=== PATIENT | male | born 1935 | race Caucasian/White ===

== ENCOUNTER 2021-02-19 09:19 | Emergency (ER) | payer MEDICARE ==
[2021-02-19 09:28] VITALS: BP 116/68
--- NOTE | 2021-02-19 11:01 | XRay Report ---
CHEST 2 VIEWS INDICATION / CLINICAL INFORMATION: weakness. COMPARISON: None available. FINDINGS: SUPPORT DEVICES: None. HEART / MEDIASTINUM: No significant abnormality. LUNGS / PLEURA: No significant pulmonary or pleural abnormality. No pneumothorax. ADDITIONAL FINDINGS: No significant additional findings. IMPRESSION: 1. No acute findings. Signer Name: Darío Eisenberg MD Signed: 02/19/2021 10:57 AM Workstation Name: [id number]
[2021-02-19] MEDS ORDERED: oxyCODONE /ACETAMINOPHEN 5-325MG TAB PO ONE (11:37)
--- NOTE | 2021-02-19 11:39 | Emergency Department Report ---
ED General Adult HPI - General Chief complaint: Weakness Stated complaint: Nontraumatic left great toe pain Time Seen by Provider: 02/19/21 11:09 Source: patient, family, RN notes reviewed Mode of arrival: Ambulatory Limitations: Language Barrier - History of Present Illness Initial comments: The patient is an 85-year-old gentleman. He has a history of diabetes, high cholesterol, and possible BPH. He is accompanied by his son, Mr. Go Fox; [phone]. The patient provides permission and consent for his son to provide the history of present illness, and translate. The patient presents to the ER today with a complaint of nontraumatic left great toe pain, and redness without swelling. He recently went to an outpatient urgent care center, and was presumptively diagnosed with gout, without arthrocentesis, history of gout, and for unclear reasons, started on prednisone, indomethacin, and colchicine. He currently denies headache, neck pain, chest pain, abdominal pain, shortness of breath. To me, he denies walking and resting claudication. He does endorse nontraumatic wounds noted on the left lateral/inferior aspect of the great toe, and of the right heel. Both the patient and his son are not quite sure how long these lesions have been there for. To the best of their knowledge, this patient does not have a history of renal insufficiency. To me, he makes no complaints of loss of appetite. He is able to ambulate and weight-bear, but is painful on his left foot. He lives at home with family -: Gradual, days(s) Location: left, lower extremity Consistency: constant Improves with: rest Worsens with: movement - Related Data Previous Rx's Medication Instructions Recorded Last Taken Type Acetaminophen [Non-Aspirin Extra 500 mg PO Q6HR PRN #30 tablet 02/19/21 Unknown Rx Strength] Aspirin EC [Ecotrin] 325 mg PO QDAY #30 tablet. 02/19/21 Unknown Rx Allergies Allergy/AdvReac Type Severity Reaction Status Date / Time Penicillins AdvReac Unknown Verified 02/19/21 09:28 ED Review of Systems ROS: Stated complaint: Pain in foot, trouble sleeping, no appetite Other details as noted in HPI Constitutional: denies: fever, malaise, weakness Eyes: denies: eye discharge ENT: denies: epistaxis Respiratory: denies: cough Cardiovascular: denies: chest pain Gastrointestinal: denies: abdominal pain Genitourinary: denies: dysuria Musculoskeletal: arthralgia, myalgia Skin: lesions Neurological: denies: weakness, numbness ED Past Medical Hx - Medications Home Medications: Home Medications Medication Instructions Recorded Confirmed Last Taken Type Acetaminophen [Non-Aspirin Extra 500 mg PO Q6HR PRN #30 tablet 02/19/21 Unknown Rx Strength] Aspirin EC [Ecotrin] 325 mg PO QDAY #30 tablet. 02/19/21 Unknown Rx ED Physical Exam - General Limitations: Language Barrier General appearance: alert, in no apparent distress - Head Head exam: Present: atraumatic, normocephalic - Eye Eye exam: Present: normal appearance, EOMI. Absent: nystagmus - ENT ENT exam: Present: normal exam, normal orophraynx, mucous membranes moist, normal external ear exam - Neck Neck exam: Present: normal inspection, full ROM. Absent: tenderness, meningismus - Respiratory Respiratory exam: Present: normal lung sounds bilaterally. Absent: respiratory distress, wheezes, rales, rhonchi, stridor, decreased breath sounds - Cardiovascular Cardiovascular Exam: Present: regular rate, normal rhythm, normal heart sounds. Absent: bradycardia, tachycardia, irregular rhythm, systolic murmur, diastolic murmur, rubs, gallop - GI/Abdominal GI/Abdominal exam: Present: soft. Absent: distended, tenderness, guarding, rebound, rigid, pulsatile mass - Rectal Rectal exam: Present: deferred - Extremities Exam Extremities exam: Present: full ROM, other (2+ pulses noted in the bilateral radial and femoral distribution. There is delayed capillary refill in the bilateral feet, and the bilateral feet are cool to touch. Pulses not appreciated on the bilateral lower extremities. ). Absent: normal inspection (On the right heel, there is a 2 to 3 mm wound, with what appears to be micronecrosis. On the plantar medial aspect of the left great toe, there are 2 subcentimeter punctate areas of necrosis/wound. There is no pus or streaking. Left great toe is minimally red, but nontender. ), tenderness (There is no pain with passive range of motion of the great toe), normal capillary refill (Bilateral lower extremities), pedal edema, calf tenderness - Back Exam Back exam: Present: normal inspection. Absent: tenderness, CVA tenderness (R), CVA tenderness (L), paraspinal tenderness, vertebral tenderness - Neurological Exam Neurological exam: Present: alert, normal gait (The patient walks with a slight limp), other (No facial droop. Tongue midline. Extraocular movements intact bilaterally. Facial sensation intact to light touch in V1, V2, V3 distribution bilaterally. 5 and a 5 strength in 4 extremities. Sensation intact to light touch in 4 extremities.). Absent: motor sensory deficit - Psychiatric Psychiatric exam: Present: flat affect - Skin Skin exam: Present: warm, dry ED Course Vital Signs 02/19/21 02/19/21 09:24 11:51 Temperature 96.4 F L Pulse Rate 87 Respiratory 12 15 Rate Blood Pressure 116/68 [Left] O2 Sat by Pulse 100 Oximetry ED Medical Decision Making - Lab Data Result diagrams: 02/19/21 11:52 02/19/21 11:52 Vital Signs 02/19/21 02/19/21 09:24 11:51 Temperature 96.4 F L Pulse Rate 87 Respiratory 12 15 Rate Blood Pressure 116/68 [Left] O2 Sat by Pulse 100 Oximetry Lab Results 02/19/21 02/19/21 02/19/21 Range/Units 11:52 11:52 11:52 WBC 7.0 (4.5-11.0) K/mm3 RBC 5.80 H (3.65-5.03) M/mm3 Hgb 12.6 (11.8-15.2) gm/dl Hct 39.0 (35.5-45.6) % MCV 67 L (84-94) fl MCH 22 L (28-32) pg MCHC 32 (32-34) % RDW 16.7 H (13.2-15.2) % Plt Count 255 (140-440) K/mm3 Stanton % (Auto) 9.7 H (0.0-7.3) % Eos % (Auto) Dietary Assistant Eos # (Auto) 1.4 H (0.0-0.4) K/mm3 Seg Neutrophils % 58.4 (40.0-70.0) % Seg Neutrophils # 4.1 (1.8-7.7) K/mm3 PT 12.7 (12.2-14.9) Sec. INR 0.86 L (0.87-1.13) Sodium 133 L (137-145) mmol/L Potassium 4.5 (3.6-5.0) mmol/L Chloride 98.8 (98-107) mmol/L Carbon Dioxide 23 (22-30) mmol/L Anion Gap 16 mmol/L BUN 41 H (9-20) mg/dL Creatinine 2.6 H (0.8-1.3) mg/dL Estimated GFR 24 ml/min BUN/Creatinine Ratio 16 % Glucose 172 H (75-100) mg/dL Calcium 8.5 (8.4-10.2) mg/dL Magnesium 2.10 (1.7-2.3) mg/dL Total Bilirubin 0.20 (0.1-1.2) mg/dL AST 30 (5-40) units/L ALT 63 H (7-56) units/L Alkaline Phosphatase 103 (35-129) units/L Total Creatine Kinase 109 (55-170) units/L Total Protein 6.9 (6.3-8.2) g/dL Albumin 3.8 L (3.9-5) g/dL Albumin/Globulin Ratio 1.2 % - Radiology Data Radiology results: pending, report reviewed, image reviewed XR foot 3+V LT INDICATION / CLINICAL INFORMATION: left foot pain, great toe wound. COMPARISON: None available. FINDINGS: BONES/JOINT(S): No acute fracture or subluxation. There is mild DJD in the first MTP joint. There are no focal areas of bone destruction to suggest osteomyelitis. SOFT TISSUES: Soft tissue swelling in the great toe without formed body or soft tissue gas. ADDITIONAL FINDINGS: None. Signer Name: Darío Eisenberg MD Signed: 02/19/2021 11:31 AM Workstation Name: [id number] CHEST 2 VIEWS INDICATION / CLINICAL INFORMATION: weakness. COMPARISON: None available. FINDINGS: SUPPORT DEVICES: None. HEART / MEDIASTINUM: No significant abnormality. LUNGS / PLEURA: No significant pulmonary or pleural abnormality. No pneumothorax. ADDITIONAL FINDINGS: No significant additional findings. IMPRESSION: 1. No acute findings. Signer Name: Darío Eisenberg MD Signed: 02/19/2021 9:57 AM Workstation Name: [id number] DUPLEX DOPPLER LOWER EXTREMITY ARTERIAL, BILATERAL INDICATION / CLINICAL INFORMATION: lle pain, cool extremities, no dp pulses. TECHNIQUE: Arterial duplex examination of both lower extremities performed using B-mode, color flow and spectral Doppler assessment. FINDINGS: RIGHT: Common Femoral Artery: PSV 87 cm/sec. Triphasic waveform. Proximal SFA: PSV 84 cm/sec. Biphasic waveform. Mid SFA: PSV 70 cm/sec. Biphasic waveform. Distal SFA: PSV 50 cm/sec. Biphasic waveform. Popliteal artery: PSV 70 cm/sec. Biphasic waveform. Posterior tibial artery: PSV 16 cm/sec. Monophasic waveform. Dorsalis Pedis Artery: PSV 5 cm/sec. Monophasic waveform. LEFT: Common Femoral Artery: PSV 65 cm/sec. Biphasic waveform. Proximal SFA: PSV 86 cm/sec. Biphasic waveform. Mid SFA: PSV 62 cm/sec. Biphasic waveform. Distal SFA: PSV 43 cm/sec. Biphasic waveform. Popliteal artery: PSV 41 cm/sec. Biphasic waveform. Posterior tibial artery: PSV 21 cm/sec. Monophasic waveform. Dorsalis Pedis Artery: PSV 7 cm/sec. Monophasic waveform. IMPRESSION: 1. Findings suggesting high-grade stenosis in the bilateral calf/ankle arteries. Ankle-Brachial Index (JOSEFINA): - Calcified arteries > 1.4 - Normal = 0.9-1.4 - Mild PAD = 0.7-0.89 - Moderate PAD = 0.51-0.69 - Severe PAD < 0.5 Doppler Waveform: - Triphasic is normal. - Biphasic is abnormal if clear transition from triphasic signal along vascular tree. - Monophasic is abnormal. Signer Name: Darío Eisenberg MD Signed: 02/19/2021 12:40 PM Workstation Name: [id number] - Medical Decision Making Differential diagnosis, including but not limited to: Peripheral artery disease, resting claudication, left great toe wound, right heel wound Assessment and plan: 85-year-old gentleman, who was afebrile, with reassuring vital signs, temperature of 96.4 likely secondary to environmental exposure, presenting to the ER with a primary complaint of left great toe pain, left foot pain, without evidence of superinfection, likely secondary to undiagnosed an unknown peripheral artery disease. Femoral pulses appreciated, and lower extremity duplex study suggests lower extremity PAD. Laboratory studies unremarkable with exception of renal insufficiency. Extensive discussion had with patient and his 2 sons, Mr. Stiles, and Mr. Capone. We discussed the risks, benefits and alternatives of admission versus outpatient follow-up. The patient has endorsed in no uncertain terms that he would like to be discharged as an outpatient. He exhibits decision-making capacity, is free from distracting injury, and is of sound mind. This appears to have been going on for some time, and he is not acutely or emergently decompensated at this point in time. Patient and his sons endorse that they are reliable to follow-up as an outpatient for renal insufficiency of unknown duration and chronicity, and peripheral artery disease. Have strongly encouraged patient and sons to follow-up closely with outpatient vascular surgery, and outpatient nephrology. Recommended that they discontinue prednisone, colchicine, and indomethacin. Discontinue NSAIDs. Return precautions reviewed. All questions answered. Family and patient endorsed understanding Critical care attestation.: If time is entered above; I have spent that time in minutes in the direct care of this critically ill patient, excluding procedure time. ED Disposition Clinical Impression: PAD (peripheral artery disease), Left foot pain, Renal insufficiency, Wound of foot Disposition: 01 HOME / SELF CARE / HOMELESS Is pt being admited?: No Does the pt Need Aspirin: No Condition: Good Instructions: Peripheral Vascular Disease, Wound Care, Adult Additional Instructions: Weightbearing as tolerated. Patient is found to have peripheral artery disease in the bilateral lower extremities. This should be followed up as soon as possible with an outpatient vascular surgeon, such as Dr. Guzman. Patient may take the prescribed Tylenol as needed for physical pain. Patient should also take the aspirin as directed. The patient should discontinue Motrin, ibuprofen, Naprosyn, Aleve, and he should also not take colchicine, indomethacin, or prednisone/steroids. If the patient takes a medication that is an SONIA inhibitor, he should discontinue this medication. The patient should also follow-up with a wastewater analyst lab analyst, such as Dr. Lu, within the next week. Please return to the emergency room right away with new pain, worsened pain, migration of pain, projectile vomiting, change in mental status, confusion, inability to tolerate liquid feeds, new, worsened or different symptoms not present on the initial emergency room evaluation. Not following up closely with an outpatient vascular surgeon will result in worsening wounds in the bilateral lower feet, which will place patient at risk for infection, which ultimately may require amputation, and because disability, or even in extreme situations. Therefore, it is very important to closely follow-up with outpatient specialists as recommended. Referrals: JORGE GUZMAN MD [Staff Physician] - 3-5 Days TIO LU DO [Staff Physician] - 3-5 Days
[2021-02-19 12:06] LABS: Platelet Count 255 K/mm3 (140-440)
[2021-02-19 12:12] LABS: Eosinophils # (Auto) 1.4 K/mm3 (0.0-0.4); Hemoglobin 12.6 gm/dl (11.8-15.2); Mean Corpuscular HGB Conc 32 % (32-34); Monocytes % (Auto) 9.7 % (0.0-7.3); Red Cell Distribution Width 16.7 % (13.2-15.2)
[2021-02-19 12:13] LABS: Mean Corpuscular Volume 67 fl (84-94)
[2021-02-19 12:18] LABS: INR 0.86 (0.87-1.13)
[2021-02-19 12:29] LABS: Albumin 3.8 g/dL (3.9-5); Calcium 8.5 mg/dL (8.4-10.2)
--- NOTE | 2021-02-19 12:35 | XRay Report ---
XR foot 3+V LT INDICATION / CLINICAL INFORMATION: left foot pain, great toe wound. COMPARISON: None available. FINDINGS: BONES/JOINT(S): No acute fracture or subluxation. There is mild DJD in the first MTP joint. There are no focal areas of bone destruction to suggest osteomyelitis. SOFT TISSUES: Soft tissue swelling in the great toe without formed body or soft tissue gas. ADDITIONAL FINDINGS: None. Signer Name: Darío Eisenberg MD Signed: 02/19/2021 12:31 PM Workstation Name: [id number]
--- NOTE | 2021-02-19 13:45 | Vascular Lab Report ---
DUPLEX DOPPLER LOWER EXTREMITY ARTERIAL, BILATERAL INDICATION / CLINICAL INFORMATION: lle pain, cool extremities, no dp pulses. TECHNIQUE: Arterial duplex examination of both lower extremities performed using B-mode, color flow and spectral Doppler assessment. FINDINGS: RIGHT: Common Femoral Artery: PSV 87 cm/sec. Triphasic waveform. Proximal SFA: PSV 84 cm/sec. Biphasic waveform. Mid SFA: PSV 70 cm/sec. Biphasic waveform. Distal SFA: PSV 50 cm/sec. Biphasic waveform. Popliteal artery: PSV 70 cm/sec. Biphasic waveform. Posterior tibial artery: PSV 16 cm/sec. Monophasic waveform. Dorsalis Pedis Artery: PSV 5 cm/sec. Monophasic waveform. LEFT: Common Femoral Artery: PSV 65 cm/sec. Biphasic waveform. Proximal SFA: PSV 86 cm/sec. Biphasic waveform. Mid SFA: PSV 62 cm/sec. Biphasic waveform. Distal SFA: PSV 43 cm/sec. Biphasic waveform. Popliteal artery: PSV 41 cm/sec. Biphasic waveform. Posterior tibial artery: PSV 21 cm/sec. Monophasic waveform. Dorsalis Pedis Artery: PSV 7 cm/sec. Monophasic waveform. IMPRESSION: 1. Findings suggesting high-grade stenosis in the bilateral calf/ankle arteries. Ankle-Brachial Index (JOSEFINA): - Calcified arteries > 1.4 - Normal = 0.9-1.4 - Mild PAD = 0.7-0.89 - Moderate PAD = 0.51-0.69 - Severe PAD < 0.5 Doppler Waveform: - Triphasic is normal. - Biphasic is abnormal if clear transition from triphasic signal along vascular tree. - Monophasic is abnormal. Signer Name: Darío Eisenberg MD Signed: 02/19/2021 1:40 PM Workstation Name: [employer]
[2021-02-19 18:13] LABS: Anisocytosis 1+; Hypochromasia 2+; Platelet Estimate Consistent w Auto; Total Cells Counted 100
== END 2021-02-19 14:45 | disposition home or self-care (01) ==
LOC: ED 09:19
DX: S91.302A Unspecified open wound, left foot, initial encounter (principal); I73.9 Peripheral vascular disease, unspecified; N28.9 Disorder of kidney and ureter, unspecified; X58.XXXA Exposure to other specified factors, initial encounter; Y93.89 Activity, other specified; Y92.89 Other specified places as the place of occurrence of the external cause; Y99.8 Other external cause status
CPT/HCPCS: 36415; 71046; 80053; 82550; 83735; 85007; 85025; 85610; 93925; 99284